=== PATIENT | male | born 1990 | race Caucasian/White ===

== ENCOUNTER 2022-07-01 11:45 | Emergency (ER) | payer SELFPAY ==
[2022-07-01] MEDS ORDERED: Bupivacaine 0.5% 10 ML SDV INJECT ONE (12:40)
[2022-07-01] MEDS ORDERED: Lidocaine 1% 10 ML MDV INJECT ONE (12:40)
[2022-07-01] MEDS ORDERED: Diphtheria,Pertussis(Acell),Tetanus Vaccine 0.5 ML Syringe IM ONE (12:40)
[2022-07-01] MEDS ORDERED: Ketorolac 60 MG/2 ML SDV IM ONE (12:40)
== END 2022-07-01 13:20 | disposition home or self-care (01) ==
LOC: JD.ED 11:45
DX: S62.662A Nondisplaced fracture of distal phalanx of right middle finger, initial encounter for closed fracture (principal); S60.414A Abrasion of right ring finger, initial encounter; Z23 Encounter for immunization; W23.0XXA Caught, crushed, jammed, or pinched between moving objects, initial encounter; Y92.89 Other specified places as the place of occurrence of the external cause; Y99.0 Civilian activity done for income or pay
CPT/HCPCS: 64450; 73140; 90471; 90715; 96372; 99283; J1885; J3490; 99282